=== PATIENT | female | born 1965 | race Caucasian/White ===

== ENCOUNTER 2019-12-10 14:18 | Outpatient (REF) | payer BC, SELFPAY ==
[2019-12-10 19:12] LABS: ALT 40 U/L (14-59); AST 22 U/L (15-37); Alkaline Phosphatase 79 U/L (46-116); Anion Gap 9.3 mmol/L (3-11); BUN 12 mg/dL (7-18); Bilirubin, Total 0.4 mg/dL (0.2-1.0); CO2 29.7 mmol/L (21.0-32.0); CREATININE 0.74 mg/dL (0.55-1.02); Calcium 9.3 mg/dL (8.5-10.1); Calculated LDL 215 mg/dL; Chloride 102 mmol/L (98-107); Cholesterol 292 mg/dL (<200); Glucose 68 mg/dL (74-106); HDL Cholesterol 54 mg/dL (40-60); Potassium 3.7 mmol/L (3.5-5.1); Sodium 141 mmol/L (136-145); Total Protein 7.4 g/dL (6.4-8.2); Triglyceride 115 mg/dL (<150)
[2019-12-10 19:33] LABS: Vitamin D 25 Total 41.1 ng/ml (30-100)
== END 2019-12-10 14:38 ==
LOC: NCHCN 14:18
PROVIDERS: PCP Nurse Practitioner Family; Visit Provider Nurse Practitioner
DX: E78.5 Hyperlipidemia, unspecified (principal); R73.09 Other abnormal glucose; E55.9 Vitamin D deficiency, unspecified
CPT/HCPCS: 80053; 80061; 82306; 83036

== ENCOUNTER 2020-06-23 01:14 | Outpatient (CLI) | payer BC, SELFPAY ==
--- NOTE | 2020-06-23 | DI.MAMMO_ITS ---
EXAM: MAMMO SCREENING CLINICAL HISTORY: SCREENING, Z12.39 TECHNIQUE: Mammograms were interpreted according to the usual protocol including computer analysis w [employer] CAD system, tomosynthesis and C-view imaging. COMPARISON: FINDINGS: The breasts are of moderate density with fairly symmetrical distribution of fibroglandular tissue. N o dominant mass or clumped microcalcification is identified in either breast. Current examination is compared with previous examinations including April 2017 and there has been no gross interval change in appearance in comparison with the prior studies. IMPRESSION: No specific evidence of malignancy at this time. Routine screening examinations are suggested at ye lali intervals in this age group according to the ACS ACR guidelines. BI-RADS Category 1 - Negative Breast Density - Category B - Scattered areas of fibroglandular density
== END 2020-06-23 01:34 ==
PROVIDERS: PCP Nurse Practitioner Family; Visit Provider Nurse Practitioner
DX: Z12.31 Encounter for screening mammogram for malignant neoplasm of breast (principal); R92.2 Inconclusive mammogram
CPT/HCPCS: 77063; 77067

== ENCOUNTER 2021-01-12 10:10 | Outpatient (REF) | payer BC, SELFPAY ==
--- NOTE | 2021-01-12 09:30 | PAPFT_PTH ---
PATIENT: Altagracia Abdalla LOC: [facility]#:[id number] AGE/SX: 55/F ROOM: RE01/12/[address]: Gretta Sanchez : 1965 BED: DIS: 01/12/2021 SPEC #: [id number] RECD: 01/12/21 18:24 STATUS: SHANTE REJoaquin #: [id number] FAY: 01/12/21 09:[address]: Gretta Sanchez DEPT: [facility] Cytology RECD BY: Veronika Fernández ENTERED: 01/12/21 18:25 SP TYPE: PAPFT OTHR DR: Jaye Kennedy Tissues: 1 - CX/ENDOCX FOR PAP SMEARS Procedures: PAP THIN PREP/UVM Screening HPV DNA PROBE Comments: [id number]
[2021-01-12 16:33] LABS: ALT 37 U/L (14-59); AST 22 U/L (15-37); Albumin 3.8 g/dL (3.4-5.0); Alkaline Phosphatase 73 U/L (46-116); Anion Gap 11.6 mmol/L (3-11); BUN 17 mg/dL (7-18); Bilirubin, Total 0.5 mg/dL (0.2-1.0); CO2 25.4 mmol/L (21.0-32.0); CREATININE 0.8 mg/dL (0.55-1.02); Calcium 9.4 mg/dL (8.5-10.1); Calculated LDL 233 mg/dL (<100); Chloride 103 mmol/L (98-107); Cholesterol 314 mg/dL (<200); Glucose 98 mg/dL (74-106); HDL Cholesterol 57 mg/dL (40-60); Potassium 4.2 mmol/L (3.5-5.1); Sodium 140 mmol/L (136-145); Total Protein 7.2 g/dL (6.4-8.2); Triglyceride 124 mg/dL (<150)
== END 2021-01-12 10:11 | disposition home or self-care (01) ==
LOC: NCHCN 10:10
PROVIDERS: PCP Nurse Practitioner Family; Visit Provider Nurse Practitioner
DX: Z00.00 Encounter for general adult medical examination without abnormal findings (principal); E78.5 Hyperlipidemia, unspecified; R73.03 Prediabetes; Z12.4 Encounter for screening for malignant neoplasm of cervix; Z11.51 Encounter for screening for human papillomavirus (HPV)
CPT/HCPCS: 80053; 80061; 88142; 83036; 87624

== ENCOUNTER 2023-01-17 01:20 | Outpatient (CLI) | payer BC, SELFPAY ==
--- NOTE | 2023-01-17 | DI.MAMMO_ITS ---
Exam(s) MAMMO SCREENING EXAM: MAMMO SCREENING CLINICAL HISTORY: SCREENING, Z12.39 TECHNIQUE: Bilateral full field digital CC and MLO mammographic images were obtained with 3D tomosyn thesis and utilizing computer aided detection (CAD). COMPARISON: Available for comparison. FINDINGS: Masses/Architectural Distortion: None seen. Microcalcifications: No suspicious pleomorphic-type are seen. Skin Thickening/Nipple Retraction: None. IMPRESSION: 1. No significant interval change with no specific features of malignancy noted. 2. Unless there is more urgent need, screening mammography is recommended, as per [employer] guidelines. BI-RADS Category 1 - Negative Breast Density - Category B - Scattered areas of fibroglandular density Breast density category C or D implies that the patient has dense breast tissue. Dense breast tissue is very common and is not abnormal but dense breast tissue can make it harder to find cancer on a ma mmogram. Also, dense breast tissue may increase their breast cancer risk. This information about the result of the mammogram report was provided to the patient to raise their awareness. Use this report when you speak with the patient about their risks for breast cancer, which includes their family hist ory. At that time, you may recommend for more screening tests (Ultrasound or MRI) as they might be us eful based on their risk. A negative radiographic report should not delay biopsy if a dominant or clinically suspicious mass is present. Up to ten percent of cancers are not identified on mammography. A negative report may reinforce clinical impression. Adenosis and dense breasts may obscure an underlying neoplasm. False positive reports average 6 to 10%. Patient will receive a letter notifying them of these results.
== END 2023-01-17 01:40 ==
PROVIDERS: PCP Nurse Practitioner Family; Visit Provider Nurse Practitioner Family
DX: Z12.31 Encounter for screening mammogram for malignant neoplasm of breast (principal)
CPT/HCPCS: 77063; 77067

== ENCOUNTER 2023-10-10 18:03 | Outpatient (REF) | payer BC, SELFPAY ==
[2023-10-10 19:07] LABS: Hemoglobin A1C 5.8 % (<5.7)
[2023-10-10 19:10] LABS: ALT 25 U/L (14-59); AST 19 U/L (15-37); Albumin 3.9 g/dL (3.4-5.0); Alkaline Phosphatase 84 U/L (46-116); Anion Gap 11.8 mmol/L (3-11); BUN 10 mg/dL (7-18); Bilirubin, Total 0.5 mg/dL (0.2-1.0); CO2 25.2 mmol/L (21.0-32.0); CREATININE 0.7 mg/dL (0.55-1.02); Calcium 9.7 mg/dL (8.5-10.1); Calculated LDL 254 mg/dL (<100); Chloride 103 mmol/L (98-107); Cholesterol 338 mg/dL (<200); Estimated GFR 99.57 (mL/min/1.73m2); Glucose 91 mg/dL (74-106); HDL Cholesterol 55 mg/dL (40-60); Sodium 140 mmol/L (136-145); Total Protein 7.4 g/dL (6.4-8.2); Triglyceride 149 mg/dL (<150)
[2023-10-10 20:02] LABS: Vitamin D 25 Total 25.8 ng/mL (30-100)
[2023-10-12 10:18] LABS: HIV-1/2 Ag & Ab Screen Negative (Negative)
[2023-10-12 10:34] LABS: Hepatitis C Ab w Rflx HCV PCR Negative (Negative)
== END 2023-10-10 18:04 | disposition home or self-care (01) ==
LOC: NCHCN 18:03
PROVIDERS: PCP Nurse Practitioner Family; Visit Provider Nurse Practitioner Family
DX: E78.5 Hyperlipidemia, unspecified (principal); E55.9 Vitamin D deficiency, unspecified; R73.03 Prediabetes; R03.0 Elevated blood-pressure reading, without diagnosis of hypertension; Z11.4 Encounter for screening for human immunodeficiency virus [HIV]; Z11.59 Encounter for screening for other viral diseases
CPT/HCPCS: 80053; 80061; 82306; 86803; 87389; 83036

== ENCOUNTER 2024-11-26 03:02 | Outpatient (CLI) | payer BC, SELFPAY ==
--- NOTE | 2024-11-26 07:56 | DI.MAMMO_ITS ---
Exam(s) MAMMO SCREENING EXAM: MAMMO SCREENING CLINICAL HISTORY: SCREENING MAMMO Z12.31 TECHNIQUE: Bilateral full field digital CC and MLO mammographic images were obtained with 3D tomosyn thesis and utilizing computer aided detection (CAD). COMPARISON: Available for comparison. FINDINGS: Masses/Architectural Distortion: There are stable bilateral breast nodules. No new nodules. No area s of architectural distortion. Microcalcifications: No suspicious pleomorphic-type are seen. Skin Thickening/Nipple Retraction: None. IMPRESSION: 1. No significant interval change with no specific features of malignancy noted. 2. Unless there is more urgent need, screening mammography is recommended, as per [employer] guidelines. BI-RADS Category 2 - Benign Findings Breast Density - Category B - Scattered areas of fibroglandular density Breast density category C or D implies that the patient has dense breast tissue. Dense breast tissue is very common and is not abnormal but dense breast tissue can make it harder to find cancer on a ma mmogram. Also, dense breast tissue may increase their breast cancer risk. This information about the result of the mammogram report was provided to the patient to raise their awareness. Use this report when you speak with the patient about their risks for breast cancer, which includes their family hist ory. At that time, you may recommend for more screening tests (Ultrasound or MRI) as they might be us eful based on their risk. A negative radiographic report should not delay biopsy if a dominant or clinically suspicious mass is present. Up to ten percent of cancers are not identified on mammography. A negative report may reinforce clinical impression. Adenosis and dense breasts may obscure an underlying neoplasm. False positive reports average 6 to 10%. Patient will receive a letter notifying them of these results.
--- NOTE | 2024-11-26 08:01 | DI.US_ITS ---
APPROVED REPORT EXAM: Comprehensive 2D, Doppler, and color-flow Echocardiogram Patient Location: Out-Patient Other Information Study Quality: Adequate Conclusion Normal left ventricular wall thickness and chamber size. Ejection fraction is 57%. Wall motion is n ormal Normal right ventricular size and function Both atria are normal in size Aortic valve is sclerotic and trileaflet with trace to mild regurgitation Mild mitral and tricuspid regurgitation Estimated right ventricular systolic pressure is 25 mmHg Wall motion Left Ventricle The left ventricle is normal size. The left ventricular systolic function is normal. The left ventric ular ejection fraction is within the normal range. There is normal left ventricular wall thickness. T here is normal LV segmental wall motion. There is no ventricular septal defect visualized. LVEF is 57 %. Right Ventricle The right ventricle is normal size. The right ventricular systolic function is normal. Atria The left atrium size is normal. The right atrium size is normal. The interatrial septum is intact wit h no evidence for an atrial septal defect. Aortic Valve The Aortic valve is sclerotic. Aortic valve is trileaflet. There is no aortic valvular stenosis. Tra ce to mild aortic regurgitation. Mitral Valve The mitral valve is normal in structure. No evidence of mitral valve stenosis. Mild mitral regurgitat ion. Tricuspid Valve The tricuspid valve is normal in structure. There is no tricuspid valve stenosis. Mild tricuspid regu rgitation. The RVSP is 24.8 mmHg. Pulmonic Valve The pulmonary valve is normal in structure. There is no pulmonic valvular stenosis. Trace pulmonic re gurgitation. Great Vessels The aortic root is normal in size. The ascending aorta is normal in size. Aortic arch is normal in ca liber. IVC is normal in size and collapses >50% with inspiration. Pericardium There is no pericardial effusion. 2D Dimensions IVSD d PLAX 0.94 cm F: 0.6-1.0 Ao Root d 2.72 cm F: 2.7 - 3.3 LVPW d PLAX 0.95 cm F: 0.6 - 1.0 Ao Asc Diam d 3.06 cm F: 2.3 - 3.1 LVID d PLAX 3.80 cm F: 3.8 - 5.2 LVDs 2.60 cm F: 2.2 - 3.5 LV EF Teichholz 59.7 % FS 31.15 % LV EDV (Teich) 60.5 mL LV ESV (Teich) 24.4 mL M-Mode TAPSE 2.44 cm (M/F) >1.7 Auto EF LV EDV A4C 99.7 mL LV EDV A2C 107.8 mL LV EDV BP 105.5 mL LV ESV A4C 43.2 mL LV ESV A2C 46.3 mL LV ESV BP 44.1 mL LVEF(%) A4C 56.7 % LVEF(%) A2C 57.0 % LVEF(%) BP 58.2 % LV SV A4C 56.5 ml LV SV A2C 61.4 ml LV SV BP 61.5 ml LV CO A4C 3.6 L/min LV CO A2C 3.9 L/min LV CO BP 3.7 L/min HR A4C 62.83 BPM HR A2C 63.59 BPM LV EDV Index (BP) LA Volume LA Length A4C 4.8 cm LA Length A2C 4.8 cm LA Area A4C s 16.69 cm2 LA Area A2C s 16.41 cm2 LA Vol A4C A-L 48.86 mL LA Vol A2C A-L 47.61 mL LA Vol Biplane A-L 48.4 mL LA Vol/BSA A4C A-L LA Vol/BSA A2C A-L LA Vol/BSA BP A-L 18.9 mL/m2 LA Vol A4C MOD 45.6 mL LA Vol A2C MOD 44.5 mL LA Vol BP MOD 45.2 mL RA Volume RA Area A4C 9.7 cm2 RA ESV A4C (A-L) 20.1mL RA Vol/BSA A4C A-L RA Length A4C 4.0 cm RA ESV A4C (MOD) 19.1mL LV Diastology MV E' medial 0.077 (>0.07 m/s) MV E Vmax 0.84 (0.4-1.3 m/s) MV E/E' MED 10.97 (<14) MV A Vmax 0.95 (0.4-1.3 m/s) MV E' lateral 0.087 (>0.1 m/s) E/A Ratio 0.9 MV E/E' LAT 9.63 (<14) MV E' Average 0.082 m/s MV E/E'(average) 10.26 Aortic Valve AoV Vmax 1.37 m/s LVOT Vmax 0.88 m/s AoV Peak Grad 42.4 mmHg LVOT Peak Grad 3.1 mmHg AoV Area (Vmax) 1.61 cm2 LVOT VTI 0.212 m AoV VTI 0.349 m LVOT Mean Grad 1.7 mmHg AoV Mean Simone. 0.95 m/s LVOT SV 53.12 mL AoV Mean Grad 4.1 mmHg LVOT Diam s 1.75 cm AoV Area (VTI) 1.52 cm2 AV Regurg Peak Gr. 7.51 mmHg Velocity Ratio 0.64 AR Decel Miller 2.2m/sec2 AR DT 1977 msec AR PHT 573 msec AR Vmax 4.39 m/s Mitral Valve MV DT 214 (160-240 msec) MV Vmax TIPS 0.95 m/s MV Mean Grad 1.5 (<2mmHg) MV VTI 0.420 m Pulmonary Valve PV Vmax 0.90 (0.5-1.5 m/s) RVOT Vmax 0.75 m/s PV Peak Grad 3.3 mmHg RVOT Peak Gr. 2.2 mmHg PV Mean Simone 0.66 m/s RVOT VTI 0.173 m PV Mean Grad 2.0 mmHg RVOT Mean Gr. 1.0 mmHg Tricuspid Valve RA Pressure 3.00 mmHg TR Vmax 2.33 m/s TV S' 0.11 m/s TR Peak Grad 21.7 mmHg RVSP (TR) 24.8 mmHg
== END 2024-11-26 03:22 ==
LOC: DI 03:02
PROVIDERS: PCP Nurse Practitioner Family; Visit Provider Nurse Practitioner Family
DX: Z12.31 Encounter for screening mammogram for malignant neoplasm of breast (principal); I34.0 Nonrheumatic mitral (valve) insufficiency; R92.323 Mammographic fibroglandular density, bilateral breasts; D24.1 Benign neoplasm of right breast; D24.2 Benign neoplasm of left breast
CPT/HCPCS: 77063; 77067; 93306

== ENCOUNTER 2025-10-15 19:00 | Outpatient (REF) | payer BC, SELFPAY ==
[2025-10-15 18:55] LABS: Hemoglobin A1C 5.9 % (<5.7)
[2025-10-15 19:14] LABS: ALT 25 U/L (10-49); AST 26 U/L (<34); Albumin 4.3 g/dL (3.2-5.0); Alkaline Phosphatase 75 U/L (46-116); Anion Gap 7.3 mmol/L (3-11); BUN 15 mg/dL (9-23); Bilirubin, Total 0.40 mg/dL (0.2-1.2); CO2 24.7 mmol/L (20.0-31.0); Calcium 9.1 mg/dL (8.3-10.6); Chloride 108 mmol/L (98-107); Cholesterol 283 mg/dL (<200); Glucose 86 mg/dL (74-106); HDL Cholesterol 55 mg/dL (>40); Potassium 4.0 mmol/L (3.5-5.1); Sodium 140 mmol/L (136-145); Total Protein 7.0 g/dL (5.7-8.2)
== END 2025-10-15 19:01 | disposition home or self-care (01) ==
LOC: NCHCN 19:00
PROVIDERS: PCP Nurse Practitioner Family; Visit Provider Nurse Practitioner Family
DX: Z00.00 Encounter for general adult medical examination without abnormal findings (principal); Z68.35 Body mass index [BMI] 35.0-35.9, adult; E78.5 Hyperlipidemia, unspecified
CPT/HCPCS: 80053; 80061; 83036